=== PATIENT | female | born 1940 | race Two or more races ===

== ENCOUNTER 2022-07-25 16:04 | Emergency (ER) | payer BC ==
[~2022-07-25] VITALS: Ht 162.6 cm; Wt 53.5 kg
[2022-07-25 16:18] VITALS: BP 145/80
== END 2022-07-25 18:23 | disposition home or self-care (01) ==
LOC: ER 16:17
DX: R20.2 Paresthesia of skin (principal); R51.9 Headache, unspecified
CPT/HCPCS: 70450-TC